=== PATIENT | male | born 1950 | race Caucasian/White ===

== ENCOUNTER 2016-07-06 17:16 | Inpatient (IN) | payer OTHER ==
[~2016-07-06] VITALS: Ht 177.8 cm; Wt 101.6 kg
[~2016-07-06 17:16] MED LIST: ADV250/50 INH; ALDACTONE25 MG PO; ATENOLOL25 MG PO; ENALAPRIL MALEA20 MG PO; FOL1 PO; GOOD SENSE ASPI81 M3 PO; LACTULOSE10 GM/152 PO; SERTRALINE HYDR50 M1 PO; SIMVASTATIN10 M1 PO; SPIRIVA18 MC1 INH; SULFASALAZINE500 M1 PO; THI100 PO; VENTOLIN H0.09 MG/A1 INH; VITAMIN D50000 I4 PO
[2016-07-06 17:58] LABS: BASOPHIL % 0.7 % (0-2); RED CELL DISTRIBUTION WIDTH 13.5 % (11.5-14.5)
[2016-07-06 18:02] LABS: PLATELET COUNT 121 x10^3mcL (130-400)
[2016-07-06 18:11] LABS: CHLORIDE SERUM 97 mmol/L (98-107); CREATININE SERUM 0.6 mg/dL (0.7-1.3); GFR1 > 60 mL/min; GLUCOSE SERUM 85 mg/dL (74-106); SODIUM SERUM 133 mmol/L (136-145)
[2016-07-06 18:15] LABS: ALKALINE PHOSPHATASE 48 U/L (46-116); ALT/SGPT 33 U/L (16-63); AST/SGOT 41 U/L (15-37); BILIRUBIN TOTAL 0.5 mg/dL (0.20-1.00); TOTAL PROTEIN, SERUM 7.4 g/dL (6.4-8.2)
[2016-07-06 18:36] LABS: ALBUMIN 3.3 g/dL (3.4-5.0)
[2016-07-06 20:26] LABS: CHOLESTEROL/HDL RATIO 2.9
[2016-07-06 20:36] LABS: T3 TOTAL 1.14 ng/mL
[2016-07-06 20:38] LABS: FREE T4 1.3 ng/dL (0.76-1.46); FREE THYROXINE INDEX 2.6 ug/dL (1.4-4.5); T4(THYROXINE) 7.5 ug/dL (4.7-13.3)
[2016-07-06 20:42] VITALS: BP 129/73
[2016-07-06 21:28] VITALS: BP 129/73
[2016-07-06 21:53] LABS: microscopic required? NO
[2016-07-06 22:02] LABS: UA SPECIFIC GRAVITY <=1.005 (1.005-1.035); urine erythrocyte NEGATIVE (NEGATIVE)
[2016-07-06 22:08] LABS: AMPHETAMINE QUAL UR NONE DETECTED (NEG <=1000)
[2016-07-06 22:43] VITALS: BP 136/70
[2016-07-07 05:38] VITALS: BP 153/94
[2016-07-07 05:47] LABS: CALCIUM 8.1 mg/dL (8.5-10.1); CARBON DIOXIDE 24.1 mmol/L (21-32); CHLORIDE SERUM 103 mmol/L (98-107); CREATININE SERUM 0.6 mg/dL (0.7-1.3); GFR1 > 60 mL/min; GLUCOSE SERUM 93 mg/dL (74-106); MAGNESIUM 1.7 mg/dL (1.8-2.4); PHOSPHOROUS 3.3 mg/dL (2.5-4.9); POTASSIUM SERUM 3.9 mmol/L (3.5-5.1); SODIUM SERUM 137 mmol/L (136-145)
[2016-07-07 05:49] LABS: BASOPHIL % 0.8 % (0-2); PLATELET COUNT 114 x10^3mcL (130-400); RED CELL DISTRIBUTION WIDTH 13.5 % (11.5-14.5)
[2016-07-07 10:05] VITALS: BP 159/85
[2016-07-07 14:07] VITALS: BP 136/67; BP 136/77
[2016-07-07 16:31] VITALS: BP 146/79
[2016-07-07 21:29] VITALS: BP 144/75
[2016-07-08 05:42] VITALS: BP 144/73
[2016-07-08 06:15] LABS: BASOPHIL % 0.3 % (0-2); RED CELL DISTRIBUTION WIDTH 13.2 % (11.5-14.5)
[2016-07-08 06:52] LABS: PLATELET COUNT 103 x10^3mcL (130-400)
[2016-07-08 06:56] LABS: CALCIUM 8.3 mg/dL (8.5-10.1); CARBON DIOXIDE 25.9 mmol/L (21-32); CHLORIDE SERUM 103 mmol/L (98-107); CREATININE SERUM 0.7 mg/dL (0.7-1.3); GFR1 > 60 mL/min; GLUCOSE SERUM 99 mg/dL (74-106); MAGNESIUM 1.6 mg/dL (1.8-2.4); POTASSIUM SERUM 3.8 mmol/L (3.5-5.1); SODIUM SERUM 137 mmol/L (136-145)
[2016-07-08 10:10] VITALS: BP 133/70
== END 2016-07-08 14:00 | disposition left against medical advice (07) | DRG 894 ==
LOC: ED 17:16 → DU 19:20 → MU 07-08 10:05
PROVIDERS: Emergency Medicine; ADMIT Family Medicine
PROC: 0HQ1XZZ Repair Face Skin, External Approach (ICD-10-PCS; principal; 2016-07-06)
DX: F10.129 Alcohol abuse with intoxication, unspecified (principal); G92 Toxic encephalopathy; E87.1 Hypo-osmolality and hyponatremia; E44.0 Moderate protein-calorie malnutrition; F33.1 Major depressive disorder, recurrent, moderate; I16.0 Hypertensive urgency; S01.81XA Laceration without foreign body of other part of head, initial encounter; J44.9 Chronic obstructive pulmonary disease, unspecified; E83.42 Hypomagnesemia; D69.6 Thrombocytopenia, unspecified; Z68.32 Body mass index [BMI] 32.0-32.9, adult; F17.210 Nicotine dependence, cigarettes, uncomplicated; Y93.89 Activity, other specified; W18.39XA Other fall on same level, initial encounter; Y92.89 Other specified places as the place of occurrence of the external cause
CPT/HCPCS: 80307; 82962; 83880; 84439; G0480; J3475; J7030; J7613; J7633; Q0092

== ENCOUNTER 2017-08-10 17:37 | Observation (INO) | payer OTHER ==
[~2017-08-10] VITALS: Ht 182.9 cm; Wt 103.6 kg
[~2017-08-10 17:37] MED LIST changes: +ALDACTONE25 MG; +GOOD SENSE ASPI81 M3; +LIB25 PO; +NOR10T; +SPIRONOLACTONE25 MG PO
[2017-08-10 17:52] VITALS: Ht 182.9 cm; Wt 103.6 kg
[2017-08-10 18:59] LABS: BASOPHIL % 0.1 % (0-2); RED CELL DISTRIBUTION WIDTH 13.7 % (11.5-14.5)
[2017-08-10 19:03] LABS: PLATELET COUNT 71 x10^3mcL (130-400)
[2017-08-10 19:06] LABS: CARBON DIOXIDE 25.5 mmol/L (21-32); CHLORIDE SERUM 99 mmol/L (98-107); CREATININE SERUM 0.9 mg/dL (0.7-1.3); GFR1 > 60 mL/min; GLUCOSE SERUM 104 mg/dL (74-106); POTASSIUM SERUM 3.3 mmol/L (3.5-5.1); SODIUM SERUM 134 mmol/L (136-145)
[2017-08-10 19:13] LABS: ALKALINE PHOSPHATASE 43 U/L (46-116); ALT/SGPT 74 U/L (16-63); AST/SGOT 166 U/L (15-37); BILIRUBIN TOTAL 0.91 mg/dL (0.20-1.00); TOTAL PROTEIN, SERUM 7.2 g/dL (6.4-8.2)
[2017-08-10 21:55] LABS: MAGNESIUM 1.7 mg/dL (1.8-2.4); PHOSPHOROUS 2.6 mg/dL (2.5-4.9)
[2017-08-10 21:57] LABS: CHOLESTEROL/HDL RATIO 3.8
[2017-08-10 22:03] LABS: T3 TOTAL 1.1 ng/mL
[2017-08-10 22:36] LABS: FREE T4 1.19 ng/dL (0.76-1.46); FREE THYROXINE INDEX 1.9 ug/dL (1.4-4.5); T4(THYROXINE) 5.9 ug/dL (4.7-13.3)
[2017-08-10 22:48] VITALS: BP 149/85
[2017-08-10 23:50] VITALS: BP 149/85
[2017-08-11 06:02] VITALS: BP 124/87
[2017-08-11 06:34] LABS: BASOPHIL % 0.1 % (0-2); RED CELL DISTRIBUTION WIDTH 13.4 % (11.5-14.5)
[2017-08-11 06:42] LABS: PLATELET COUNT 70 x10^3mcL (130-400)
[2017-08-11 08:30] LABS: CALCIUM 7.9 mg/dL (8.5-10.1); CHLORIDE SERUM 102 mmol/L (98-107); CREATININE SERUM 0.8 mg/dL (0.7-1.3); GFR1 > 60 mL/min; GLUCOSE SERUM 138 mg/dL (74-106); MAGNESIUM 1.9 mg/dL (1.8-2.4); PHOSPHOROUS 3.7 mg/dL (2.5-4.9); POTASSIUM SERUM 3.7 mmol/L (3.5-5.1); SODIUM SERUM 139 mmol/L (136-145)
[2017-08-11 10:43] VITALS: BP 113/67
[2017-08-11 14:34] VITALS: BP 117/62
[2017-08-11 15:26] LABS: microscopic required? NO
[2017-08-11 15:42] LABS: urine erythrocyte NEGATIVE (NEGATIVE)
[2017-08-11 16:07] LABS: AMPHETAMINE QUAL UR NONE DETECTED (NEG <=1000)
[2017-08-11 18:16] VITALS: BP 117/62
[2017-08-11 18:43] VITALS: BP 103/60
== END 2017-08-11 19:56 | disposition home health service (06) | DRG 281 ==
LOC: ED 17:37 → DU 20:45
PROVIDERS: Emergency Medicine; Family Medicine
DX: I21.A1 Myocardial infarction type 2 (principal); J44.1 Chronic obstructive pulmonary disease with (acute) exacerbation; Z68.41 Body mass index [BMI] 40.0-44.9, adult; E87.1 Hypo-osmolality and hyponatremia; E44.0 Moderate protein-calorie malnutrition; I10 Essential (primary) hypertension; F10.20 Alcohol dependence, uncomplicated; K70.10 Alcoholic hepatitis without ascites; E87.6 Hypokalemia; E83.51 Hypocalcemia; D69.59 Other secondary thrombocytopenia; M25.552 Pain in left hip; I36.1 Nonrheumatic tricuspid (valve) insufficiency; I37.1 Nonrheumatic pulmonary valve insufficiency; I34.0 Nonrheumatic mitral (valve) insufficiency; M47.892 Other spondylosis, cervical region; E83.42 Hypomagnesemia; Z96.642 Presence of left artificial hip joint; Z79.82 Long term (current) use of aspirin; Z96.652 Presence of left artificial knee joint; F17.210 Nicotine dependence, cigarettes, uncomplicated
CPT/HCPCS: 83880; 84439; G0378; G0480; J1644; J2543; J2930; J7030; J7620; Q0092

== ENCOUNTER 2017-08-13 20:05 | Emergency (ER) | payer OTHER ==
[~2017-08-13] VITALS: Ht 175.3 cm; Wt 113.4 kg
[2017-08-13 20:20] VITALS: Ht 175.3 cm; Wt 113.4 kg
[2017-08-13 22:04] LABS: BASOPHIL % 0.3 % (0-2); RED CELL DISTRIBUTION WIDTH 13.4 % (11.5-14.5)
[2017-08-13 22:07] LABS: PLATELET COUNT 106 x10^3mcL (130-400)
[2017-08-13 22:12] LABS: CALCIUM 8.9 mg/dL (8.5-10.1); CARBON DIOXIDE 23.8 mmol/L (21-32); CHLORIDE SERUM 102 mmol/L (98-107); CREATININE SERUM 0.6 mg/dL (0.7-1.3); GFR1 > 60 mL/min; GLUCOSE SERUM 88 mg/dL (74-106); SODIUM SERUM 139 mmol/L (136-145)
[2017-08-13 22:18] LABS: ALKALINE PHOSPHATASE 48 U/L (46-116); ALT/SGPT 61 U/L (16-63); AST/SGOT 74 U/L (15-37); BILIRUBIN TOTAL 0.65 mg/dL (0.20-1.00)
[2017-08-13 22:23] LABS: ALBUMIN 2.8 g/dL (3.4-5.0); CHOLESTEROL 110 mg/dL (<200); HDL CHOLESTEROL 27 mg/dL (40-60)
[2017-08-14 00:33] VITALS: BP 134/64
== END 2017-08-14 00:33 | disposition home or self-care (01) ==
LOC: ED 20:05
PROVIDERS: Emergency Medicine
DX: J44.1 Chronic obstructive pulmonary disease with (acute) exacerbation (principal); F10.10 Alcohol abuse, uncomplicated; E87.6 Hypokalemia; F17.210 Nicotine dependence, cigarettes, uncomplicated; I11.0 Hypertensive heart disease with heart failure; I50.9 Heart failure, unspecified; G89.29 Other chronic pain; M25.559 Pain in unspecified hip
CPT/HCPCS: 36415; 83880; 99406; G0480; Q0092

== ENCOUNTER 2017-08-15 18:27 | Emergency (ER) | payer OTHER ==
[~2017-08-15] VITALS: Ht 175.3 cm; Wt 113.4 kg
[2017-08-15 18:57] VITALS: Ht 175.3 cm; Wt 113.4 kg
[2017-08-15 19:55] LABS: microscopic required? NO
[2017-08-15 19:58] LABS: BASOPHIL % 0.2 % (0-2); PLATELET COUNT 140 x10^3mcL (130-400); RED CELL DISTRIBUTION WIDTH 13.6 % (11.5-14.5)
[2017-08-15 20:08] LABS: CALCIUM 8.2 mg/dL (8.5-10.1); CARBON DIOXIDE 23.2 mmol/L (21-32); CHLORIDE SERUM 98 mmol/L (98-107); CREATININE SERUM 0.7 mg/dL (0.7-1.3); GFR1 > 60 mL/min; GLUCOSE SERUM 89 mg/dL (74-106); POTASSIUM SERUM 3.6 mmol/L (3.5-5.1); SODIUM SERUM 134 mmol/L (136-145)
[2017-08-15 20:11] LABS: ALKALINE PHOSPHATASE 43 U/L (46-116); ALT/SGPT 66 U/L (16-63); AST/SGOT 64 U/L (15-37); BILIRUBIN TOTAL 1.12 mg/dL (0.20-1.00); LIPASE 443 IU/L (73-393); TOTAL PROTEIN, SERUM 7.2 g/dL (6.4-8.2)
[2017-08-15 20:23] LABS: UA SPECIFIC GRAVITY <=1.005 (1.005-1.035); urine erythrocyte NEGATIVE (NEGATIVE)
[2017-08-15 21:38] VITALS: BP 132/82
== END 2017-08-15 21:38 | disposition home or self-care (01) ==
LOC: ED 18:27
PROVIDERS: Emergency Medicine
DX: R10.30 Lower abdominal pain, unspecified (principal); F10.129 Alcohol abuse with intoxication, unspecified; J44.9 Chronic obstructive pulmonary disease, unspecified; I11.9 Hypertensive heart disease without heart failure; I50.9 Heart failure, unspecified
CPT/HCPCS: 83880; G0480; J1100; J1885; J2405; J3490; J7620; Q0092

== ENCOUNTER 2017-08-17 16:24 | Emergency (ER) | payer OTHER ==
[~2017-08-17] VITALS: Ht 175.3 cm; Wt 100.2 kg
[2017-08-17 16:26] VITALS: Ht 175.3 cm; Wt 100.2 kg
[2017-08-17 17:20] LABS: BASOPHIL % 0.2 % (0-2); PLATELET COUNT 166 x10^3mcL (130-400); RED CELL DISTRIBUTION WIDTH 13.6 % (11.5-14.5)
[2017-08-17 17:27] LABS: CALCIUM 8.5 mg/dL (8.5-10.1); CARBON DIOXIDE 24.7 mmol/L (21-32); CHLORIDE SERUM 103 mmol/L (98-107); CREATININE SERUM 0.8 mg/dL (0.7-1.3); GFR1 > 60 mL/min; GLUCOSE SERUM 106 mg/dL (74-106); POTASSIUM SERUM 3.6 mmol/L (3.5-5.1); SODIUM SERUM 131 mmol/L (136-145)
[2017-08-17 17:32] LABS: ALKALINE PHOSPHATASE 41 U/L (46-116); ALT/SGPT 48 U/L (16-63); AST/SGOT 41 U/L (15-37); BILIRUBIN TOTAL 1.06 mg/dL (0.20-1.00); TOTAL PROTEIN, SERUM 6.9 g/dL (6.4-8.2)
[2017-08-17 17:34] LABS: ALBUMIN 2.9 g/dL (3.4-5.0)
[2017-08-17 18:27] VITALS: BP 118/67
== END 2017-08-17 18:27 | disposition home or self-care (01) ==
LOC: ED 16:24
PROVIDERS: Emergency Medicine
DX: J44.1 Chronic obstructive pulmonary disease with (acute) exacerbation (principal); G89.29 Other chronic pain; M25.559 Pain in unspecified hip; I11.0 Hypertensive heart disease with heart failure; I50.9 Heart failure, unspecified
CPT/HCPCS: 83880; G0480; J2930; J7613; J7644

== ENCOUNTER 2017-08-23 19:41 | Emergency (ER) | payer OTHER ==
[~2017-08-23] VITALS: Ht 175.3 cm; Wt 108.9 kg
[2017-08-23 19:52] VITALS: Ht 175.3 cm; Wt 108.9 kg
[2017-08-23 20:29] LABS: microscopic required? NO
[2017-08-23 20:32] LABS: BASOPHIL % 0.3 % (0-2); PLATELET COUNT 152 x10^3mcL (130-400); RED CELL DISTRIBUTION WIDTH 14.1 % (11.5-14.5)
[2017-08-23 20:37] LABS: UA SPECIFIC GRAVITY <=1.005 (1.005-1.035); urine erythrocyte NEGATIVE (NEGATIVE)
[2017-08-23 20:40] LABS: CALCIUM 8.2 mg/dL (8.5-10.1); CARBON DIOXIDE 24.3 mmol/L (21-32); CHLORIDE SERUM 100 mmol/L (98-107); CREATININE SERUM 0.7 mg/dL (0.7-1.3); GFR1 > 60 mL/min; GLUCOSE SERUM 85 mg/dL (74-106); POTASSIUM SERUM 3.6 mmol/L (3.5-5.1); SODIUM SERUM 136 mmol/L (136-145)
[2017-08-23 20:45] LABS: ALKALINE PHOSPHATASE 54 U/L (46-116); ALT/SGPT 42 U/L (16-63); AST/SGOT 34 U/L (15-37); BILIRUBIN TOTAL 0.9 mg/dL (0.20-1.00); TOTAL PROTEIN, SERUM 6.4 g/dL (6.4-8.2)
[2017-08-23 20:47] LABS: ALBUMIN 2.9 g/dL (3.4-5.0)
[2017-08-23 23:27] VITALS: BP 125/71
== END 2017-08-23 23:49 | disposition home or self-care (01) ==
LOC: ED 19:41
PROVIDERS: Emergency Medicine
DX: J44.1 Chronic obstructive pulmonary disease with (acute) exacerbation (principal); F10.129 Alcohol abuse with intoxication, unspecified; E86.0 Dehydration; R10.9 Unspecified abdominal pain; I11.0 Hypertensive heart disease with heart failure; I50.9 Heart failure, unspecified; G89.29 Other chronic pain; M25.552 Pain in left hip
CPT/HCPCS: 83880; G0480; J2930; J7030; J7613; J7644

== ENCOUNTER 2017-08-26 14:04 | Emergency (ER) | payer OTHER ==
[~2017-08-26] VITALS: Ht 175.3 cm; Wt 105.7 kg
[2017-08-26 14:33] VITALS: Ht 175.3 cm; Wt 105.7 kg
[2017-08-26 15:39] LABS: BASOPHIL % 1.5 % (0-2); RED CELL DISTRIBUTION WIDTH 14.2 % (11.5-14.5)
[2017-08-26 15:47] LABS: CALCIUM 8.3 mg/dL (8.5-10.1); CARBON DIOXIDE 28.3 mmol/L (21-32); CHLORIDE SERUM 106 mmol/L (98-107); CREATININE SERUM 0.8 mg/dL (0.7-1.3); GFR1 > 60 mL/min; GLUCOSE SERUM 96 mg/dL (74-106); POTASSIUM SERUM 3.8 mmol/L (3.5-5.1); SODIUM SERUM 143 mmol/L (136-145)
[2017-08-26 15:53] LABS: ALKALINE PHOSPHATASE 55 U/L (46-116); ALT/SGPT 37 U/L (16-63); AST/SGOT 32 U/L (15-37); BILIRUBIN TOTAL 0.78 mg/dL (0.20-1.00); MAGNESIUM 1.5 mg/dL (1.8-2.4); TOTAL PROTEIN, SERUM 6.3 g/dL (6.4-8.2)
[2017-08-26 15:54] LABS: ALBUMIN 2.7 g/dL (3.4-5.0)
[2017-08-26 16:11] LABS: PLATELET COUNT 103 x10^3mcL (130-400)
[2017-08-26 16:20] LABS: AMPHETAMINE QUAL UR NONE DETECTED (See below)
[2017-08-26 22:21] VITALS: BP 148/71
== END 2017-08-26 22:21 ==
LOC: ED 14:04
PROVIDERS: Emergency Medicine
DX: F32.9 Major depressive disorder, single episode, unspecified (principal); F10.10 Alcohol abuse, uncomplicated; J44.9 Chronic obstructive pulmonary disease, unspecified; F17.210 Nicotine dependence, cigarettes, uncomplicated; I11.0 Hypertensive heart disease with heart failure; I50.9 Heart failure, unspecified; E11.9 Type 2 diabetes mellitus without complications; G89.29 Other chronic pain; M25.559 Pain in unspecified hip; Z04.6 Encounter for general psychiatric examination, requested by authority
CPT/HCPCS: 99406; G0480; J3490; Q0092